=== PATIENT | male | born 1945 | race Caucasian/White ===

== ENCOUNTER 2020-12-19 15:45 | Outpatient (REF) | payer OTHER, SELFPAY ==
[2020-12-19 13:44] LABS: C Diff PCR Positive (Negative)
== END 2020-12-19 15:46 | disposition home or self-care (01) ==
LOC: LBN 15:45
PROVIDERS: Visit Provider Physician Assistant
DX: R19.7 Diarrhea, unspecified (principal)
CPT/HCPCS: 87493; 87505